=== PATIENT | female | born 1940 | race Caucasian/White ===

== ENCOUNTER 2019-11-11 11:08 | Day surgery (SDC) | payer MEDICARE, OTHER ==
[~2019-11-11] VITALS: Ht 167.6 cm; Wt 98.0 kg
--- NOTE | ~2019-11-11 | PATH ---
[facility] [address] [place] [address] Draft THIS IS AN AMENDED REPORT ORDERING PHYSICIAN: Lewis Gonzáles MD PATIENT NAME: JT LERMA GENDER: F : 1940 SPECIMEN(S): REASON FOR AMENDED REPORT.: This amended report is issued to correct the referring provider delivery location. Originally reported as [facility]; amended to [facility]. The Molecular Pathology remains unchanged. (11/12/19) MOLECULAR PATHOLOGY RESULTS: SARS-CoV-2 Not Detected ADDITIONAL NOTES.: The [facility] Fusion SARS-CoV-2 Assay is a multiplex real-time PCR (RT-PCR) in vitro diagnostic test intended for the qualitative detection of RNA from SARS-CoV-2 from individuals who meet COVID-19 clinical and/or epidemiological criteria. In general, SARS-CoV-2 RNA can be detected during the acute phase of infection. Positive results indicate the presence of SARS-CoV-2 RNA. Clinical correlation with patient history and other diagnostic information is necessary to determine patient infection status. Positive results do not rule out bacterial infection or co-infection with other viruses. Negative results do not preclude SARS-CoV-2 infection and should not be used as the sole basis for patient management decisions. Negative results must be combined with other clinical observations, patient history, and epidemiological information. The [facility] Fusion SARS-CoV-2 Assay is not yet approved or cleared by the [place] FDA. When there are no FDA-approved or cleared tests available, and other criteria are met, FDA can make tests available under an emergency access mechanism called an Emergency Use Authorization (EUA). The EUA for this test is supported by the [place] of Health and Human Service's (HHS's) declaration that circumstances exist to justify the emergency use of in vitro diagnostics for the detection and/or diagnosis of the virus that causes COVID-19. This EUA will PATIENT NAME: JT LERMA PATHOLOGY DATE OF : [birth year] REPORT #: [id number] PHYSICIAN: GIGI PATHOLOGY PCP: SABIHA CALDERON MD REPORT IS CONFIDENTIAL AND NOT TO BE RELEASED WITHOUT AUTHORIZATION [facility] [address] [place] [id number] Draft remain in effect for the duration of the COVID-19 declaration justifying emergency of IVDs, unless it is terminated or revoked by FDA, after which the test may no longer be used. The [facility] Fusion SARS-CoV-2 Assay is for use only under EUA in US laboratories certified under the Clinical Laboratory Improvement Amendments of 1988 (CLIA) to perform high complexity tests. [facility] is certified under CLIA to perform high complexity clinical laboratory testing. PERFORMING LABORATORY.: Molecular testing was performed by [facility] [place] [place] [address] (Airfreight Loading Supervisor: Keon Ibarra D.O.; CLIA#: [id number]) Diagnostician: System Interface Pathologist Electronically Signed 11/12/2019 Copies: ~ PATIENT NAME: JT LERMA PATHOLOGY DATE OF : [birth year] REPORT #: [id number] PHYSICIAN: GIGI PATHOLOGY PCP: SABIHA CALDERON MD REPORT IS CONFIDENTIAL AND NOT TO BE RELEASED WITHOUT AUTHORIZATION
[~2019-11-11 11:08] MED LIST: ASPIRIN EC81 MG; CARDIZEM CD240 MG PO; FISH OIL 1,0001 EAC2 PO; LACTULOSE10 GM/151 PO; LISINOPRIL10 MG PO; LOSARTAN POTASS50 MG; LOSARTAN POTASS50 MG PO; METHOCARBAMOL750 MG PO; NORCO 10-325 T1 EACH PO; SERTRALINE HCL100 MG; SERTRALINE HCL100 MG PO; TYLENOL EXTRA500 MG PO; VITAMIN D250000 UNIT
--- NOTE | 2019-11-11 12:47 | NUR ---
11/11/19 1247 Anna Benito 1245 PATIENT AWAKE BUT DROWSY. REPOSITIONS SELF FROM PRONE POSITION TO BACK WITH 2 PERSON ASST. RESP EVEN AND UNLABORED, NC AT 3 LITERS. PATIENT DENIES PAIN OR NAUSEA.
--- NOTE | 2019-11-15 17:12 | PATH ---
[facility] [address] [facility] [place], [place] [address] Signed SPECIMEN(S): A BONE MARROW - CORE SPECIMEN(S): B BONE MARROW - ASPIRATION SPECIMEN(S): C COMP FLOW, BM EDTA CLINICAL HISTORY: 79-year-old woman with pernicious anemia and remote history of SLL. 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 Peripheral blood - Moderate macrocytic normochromic anemia with mild anisopoikilocytosis. B. Bone marrow, aspirate smear, aspirate clot and core biopsy: - Normocellular marrow (45%) with erythroid hyperplasia and megakaryocytic atypia. - See Diagnostic Comment. DIAGNOSTIC COMMENT: The patient's clinical history of status post Estela-en-Y gastric bypass and reported remote history of SLL is noted. The current bone marrow biopsy shows a normocellular marrow (45%) with erythroid hyperplasia and megakaryocytic atypia. There is no increase in blasts. The morphologic findings are subtle and not diagnostic of a myelodysplastic syndrome, although a low grade myelodysplastic syndrome cannot be completely excluded. Macrocytic anemia can be associated with B12 deficiency in patient's with Estela-en-Y bypass. Additional reactive causes of macrocytic anemia, such as folate deficiency, drug, autoimmune, inflammatory disorders, etc., also need to be ruled out clinically. There is no evidence of B cell neoplasm. Pending cytogenetics and FISH studies will be reported by addendum. LY:slh:C2NR PERIPHERAL BLOOD: HEMOGRAM ([facility], 11/11/2019): WBC 5.1 K/uL, RBC 2.56 M/uL, HGB 9.1 g/dL, HCT 28.4%, MCV 110.5 fL, MCH 36 pg, MCHC 32 g/dL, RDW 20.6%, PLT 219 K/uL. MANUAL DIFFERENTIAL COUNT: Segmented neutrophils 64%, lymphocytes 29%, monocytes 7%, The red blood cells are moderately decreased in number with low hemoglobin and hematocrit, and are macrocytic and hypochromic with moderate anisopoikilocytosis including ovalocytes and teardrops. The PATIENT NAME: JT LERMA PATHOLOGY DATE OF : [birth year] REPORT #: [id number] PHYSICIAN: GIGI PATHOLOGY PCP: SABIHA CALDERON MD REPORT IS CONFIDENTIAL AND NOT TO BE RELEASED WITHOUT AUTHORIZATION [facility] [address] [place], [place] [address] Signed white blood cells are normal in number. Segmented neutrophils are morphologically unremarkable. No circulating blasts are identified. The platelets are normal in number an variable in size; no platelet clumps are identified. BONE MARROW: BONE MARROW ASPIRATE SMEAR: The aspirate smears are hemodilute and paucicellular, without particles. A few erythroid precursors are mildly left-shifted, with maturation, without overt cytologic atypia. A few myeloid precursors appear to be hypogranular. There is no increase in blasts. Megakaryocytes are not identified. BONE MARROW DIFFERENTIAL COUNT (200 cells, may not be senior outside sales representative): Myelocytes 15%, metamyelocytes 10%, bands 17%, segmented neutrophils 16%, lymphocytes 15%, plasma cells 1%, monocytes 3%, eosinophils 1%, basophils 1%, nucleated RBCs 21%. The umsffgz-xd-vcwtasbjl ratio is 3:1. BONE MARROW CORE BIOPSY/ASPIRATE CLOT CELL BLOCK: The core biopsy (three segments, 0.9 cm in greatest dimension) shows trabecular bone with normocellular marrow (45%) for age. The erythroid precursors show maturation. The myeloid precursors show full maturation. There is no increase in blasts. Megakaryocytes are scattered and show a few hypolobated forms. A few scattered small lymphocytes account for less than 5% of cellularity. No lymphoid aggregates are identified. A few scattered plasma cells account for less than 5% of cellularity. No lymphoid aggregates are identified. A few scattered plasma cells account for less than 5% of cellularity. The aspirate clot shows scant cellular marrow with similar morphology. SPECIAL STAINS (with adequate controls): - Iron (aspirate smear): Storage iron absent; ring sideroblasts not identified. - Iron (aspirate clot): Trace storage iron present; ring sideroblasts not identified. - Reticulin (block A1): Grade 0 fibrosis. IMMUNOHISTOCHEMICAL STAINS (performed on block A1 with adequate controls): - CD34: Stains a few blasts (less than 5%). - CD117: Highlights a few mast cells. - Myeloperoxidase: Highlights many maturing granulocytes. - CD71: Highlights relatively increased early/intermediate erythroid precursors. PATIENT NAME: JT LERMA PATHOLOGY DATE OF : [birth year] REPORT #: [id number] PHYSICIAN: GIGI PATHOLOGY PCP: SABIHA CALDERON MD REPORT IS CONFIDENTIAL AND NOT TO BE RELEASED WITHOUT AUTHORIZATION [address] [address] Signed - Factor VIII: Highlights scattered, variably sized megakaryocytes. - CD3: Stains a few scattered and focally clustered small T-cells. - CD5: Stains a few scattered and focally clustered small T-cells. - CD30: Stains very few small B-cells. - PAX5: Stains a few scattered small B-cells. LY:slh FLOW CYTOMETRY: Bone marrow, aspirate: - No increase in blasts. - No clonal B-cell or aberrant T-cell population. - See comment. COMMENT: In summary, there is no increase in blasts and no clonal B-cell or aberrant T-cell population identified in this study. Correlation with morphologic findings is recommended for full evaluation including disorders not fully characterized by flow cytometry such as myelodysplastic syndrome and myeloproliferative neoplasm. FLOW CYTOMETRY ANALYSIS: FLOW DIFFERENTIAL (% Total CD45 vs. SSC gating): Myeloid 85%; Lymphoid 7%; Monocyte 2%; Dim CD45/Blast: 1.1%. Cell Count: 4.2 x 10*3/uL. POPULATION ANALYSIS: BLASTS: Analysis of the dim CD45 gate demonstrates 0.8% myeloblasts by CD34/CD117. LYMPHOID CELLS: The lymphocyte gate comprises 7% of total events and includes 85% T-cells with a CD4:CD8 ratio of 1.4:1 and normal cole T-cell antigen expression. 6% of lymphocytes are polyclonal B-cells with a kappa:lambda ratio of 1.4:1. 8.0% of lymphocytes are NK-cells. MYELOID CELLS: The myeloid population comprises 85% of the total events. No aberrant or immature immunophenotypic expression is detected. MONOCYTES: The monocyte population comprises 2% of the total events. Monocytes are not increased. No aberrant immunophenotypic expression is detected. PLASMA CELLS: 0.2% plasma cells are detected in the screening gate neg-dimCD45/CD38. Plasma cells are CD45 dim and positive for CD19. ANTIBODIES USED: KAPPA, LAMBDA, CD20, CD10, CD19, CD23, CD38, FMC7, CD16, CD56, CD8, CD5, CD2, CD4, CD7, CD3, CD14, CD33, CD13, HLADR, CD34, CD117, CD15, CD45: TOTAL ANTIBODIES USED: 24. JLR FINAL DIAGNOSIS PERFORMED BY: Carolina Bee MD, Pathologist Nov 12 2019 4:44PM PATIENT NAME: JT LERMA PATHOLOGY DATE OF : [birth year] REPORT #: [id number] PHYSICIAN: GIGI MONTILLA PCP: SABIHA CALDERON MD REPORT IS CONFIDENTIAL AND NOT TO BE RELEASED WITHOUT AUTHORIZATION [facility] [address] [place], [place] [address] Signed CYTOGENETICS: Pending, to be reported by addendum. FISH ANALYSIS: Pending, to be reported by addendum. GROSS DESCRIPTION: Two specimens are received in two containers, labeled "Juan Luisnent." A. The specimen, labeled and designated "Tennent, bone marrow core," is received in formalin and consists of two red-jacobs cores of bone up to 1.3 cm in length that are entirely submitted in A1 for decalcification in Immunocal for an hour and a half. B. The specimen, labeled and designated "Tennent, bone marrow," is received in formalin and consists of a 1.5 x 0.8 x 0.3 cm aggregate of red-brown clot material that is entirely submitted in B1. AK (under the direct supervision of a pathologist) The Gross Description was prepared using a voice recognition system. The report was reviewed for accuracy; however, sound-alike word errors, addition and/or deletions may occur. If there is any question about this report, please contact Client Services. ADDITIONAL NOTES: This test was developed and its performance characteristics determined by [facility]. It has not been cleared or approved by the US Food and Drug Administration. The FDA does not require this test to go through premarket FDA review. This test is used for clinical purposes. It should not be regarded as investigational or for research. This laboratory is certified under the Clinical Laboratory Improvement Amendments (CLIA) as qualified to perform high complexity clinical laboratory testing. Immunohistochemical and/or in situ hybridization studies were performed on this case with the appropriate positive controls that react as expected. This test was developed and its performance characteristics determined by [facility]. It has not been cleared or approved by the U.S. Food and Drug Administration. The FDA has determined that such clearance or approval is not necessary. This test is used for clinical purposes. It should not be regarded as investigational or for research. [facility] is certified under the Clinical Laboratory Improvement Amendments of 1988 (CLIA) as qualified to perform high complexity clinical PATIENT NAME: JT LERMA PATHOLOGY DATE OF : [birth year] REPORT #: [id number] PHYSICIAN: GIGI PATHOLOGY PCP: SABIHA CALDERON MD REPORT IS CONFIDENTIAL AND NOT TO BE RELEASED WITHOUT AUTHORIZATION [facility] [address] [facility] [place], [place] [address] Signed laboratory testing. In this case, certain antibodies were performed by both immunohistochemistry and flow cytometry analysis because flow cytometry analysis did not fully explain all the light microscopic findings. Immunohistochemistry aided in the analysis. Both methods are deemed medically necessary in this case. PERFORMING LABORATORY: The technical component was performed by [facility], [address] [place] [id number] (Actuary Clerk: Keon bIarra D.O.; CLIA#: [id number]). [facility], [address] [facility] [place] [address] (Actuary Clerk: Santiago Jain Jr., M.D., [facility]; CLIA#: [id number]). The technical component was performed by [facility], [address] [place] [id number] (Actuary Clerk: Keon Ibarra D.O.; CLIA#: [id number]). Professional interpretation was performed by [facility], [facility], [address] [place] [phone] (Actuary Clerk: Alex Marquis M.D.; CLIA#: [id number]). IMAGES: [id number]: [id number] A: [id number] Diagnostician: Carolina Bee MD Pathologist Electronically Signed 11/15/2019 Copies: ~ PATIENT NAME: JT LERMA PATHOLOGY DATE OF : 44 REPORT #: [id number] PHYSICIAN: GIGI PATHOLOGY PCP: SABIHA CALDERON MD REPORT IS CONFIDENTIAL AND NOT TO BE RELEASED WITHOUT AUTHORIZATION
== END 2019-11-11 13:15 | disposition home or self-care (01) ==
LOC: OPS 11:08 → DS 11:08 → OPS 12:00 → DS 12:00 → OPS 13:15
PROVIDERS: ATTEND Specialist
PROC: 079T3ZX Drainage of Bone Marrow, Percutaneous Approach, Diagnostic (ICD-10-PCS; 2019-11-11)
PROC: 07DR3ZX Extraction of Iliac Bone Marrow, Percutaneous Approach, Diagnostic (ICD-10-PCS; 2019-11-11)
PROC: 07JT3ZZ Inspection of Bone Marrow, Percutaneous Approach (ICD-10-PCS; principal; 2019-11-11 12:00)
DX: D51.0 Vitamin B12 deficiency anemia due to intrinsic factor deficiency (principal); D47.4 Osteomyelofibrosis; I10 Essential (primary) hypertension; I48.91 Unspecified atrial fibrillation; J45.909 Unspecified asthma, uncomplicated; Z85.72 Personal history of non-Hodgkin lymphomas; Z79.899 Other long term (current) drug therapy; Z79.01 Long term (current) use of anticoagulants; Z88.2 Allergy status to sulfonamides
CPT/HCPCS: 80053; 82607; 82746; 83090; 83615; 83921; 85025; 85045; 99153; G0500; J2250; J3010; J7121

== ENCOUNTER 2020-10-05 08:45 | Day surgery (SDC) | payer MEDICARE, OTHER ==
[~2020-10-05] VITALS: Ht 167.6 cm; Wt 90.0 kg
[~2020-10-05 08:45] MED LIST changes: +METOPROLOL SUCC25 MG PO; -VITAMIN D250000 UNIT; +VITAMIN D3125 MC1 PO
--- NOTE | 2020-10-05 10:15 | NUR ---
PATIENT BACK TO ROOM FROM PACU. REPORT RECEIVIED FROM ZI RAMSEY. PATIENT RATES PAIN 09/26. DENIES NAUEA. VSS. AT BEDSIDE. DRESSING CLEAN, DRY, AND INTACE. PATIENT UP TO BATHROOM WITH 2 RN ASSIST. PATIENT GAIT UNSTEADY AND TOLERATED WELL. PROVIDED PATIENT WITH WATER, APPLESAUCE, AND CRAKCKERS. PAIN MEDICATION GIVEN PER APR. CALL LIGHT WITHIN REACH.
--- NOTE | 2020-10-05 12:17 | NUR ---
10/05/20 1217 Anna Benito 1214 PATIENT ARRIVES TO PACU SLEEPING. RESP EVEN AND UNLABORED, MASK AT 6 LITERS, SATS 100%.
[2020-10-05] MEDS ORDERED: IBUPROFEN600 MG PO (12:33)
[2020-10-05] MEDS ORDERED: OXYCODON-ACETA1 EAC2 PO (12:33)
[2020-10-05] MEDS ORDERED: ACETAMINOPHEN500 MG PO (12:33)
--- NOTE | 2020-10-05 12:52 | NUR ---
1246: PATIENT BACK IN DAY SURGERY UNIT FROM PACU. DROWSY. DENIES PAIN. DENIES NAUSEA. IV SITE WNL. RIGHT BREAST DRESSING X 2 CLEAN, DRY, AND INTACT. SCDs ON. TAKING SIPS OF WATER. DECLINED SOMETHING TO EAT AT THIS TIME. AT BEDSIDE. CALL LIGHT WITHIN REACH. PATIENT RESTING.
--- NOTE | 2020-10-05 13:21 | NUR ---
1315: CHECKED PATIENT. RESTING. NO NEEDS AT THIS TIME. AT BEDSIDE. CALL LIGHT WITHIN REACH.
--- NOTE | 2020-10-05 13:54 | NUR ---
PATIENT AWAKENED FOR VS CHECK. RATES PAIN IN RIGHT BREAST 02/26. RIGHT BREAST DRESSINGS X 2 CLEAN, DRY AND INTACT. TOLERATING WATER. OFFERED PATIENT SOMETHING TO EAT. PATIENT DECLINED AT THIS TIME. SCDs ON. AT BEDSIDE. CALL LIGHT WITHIN REACH.
--- NOTE | 2020-10-05 15:29 | NUR ---
1415: PATIENT ASSISTED OOB AND TO BATHROOM BY OTHER RN. GAIT STEADY. VOID WITHOUT DIFFICULTY. GAIT STEADY BACK TO ROOM. PATIENT GIVEN APPLESAUCE TO EAT. AT BEDSIDE. CALL LIGHT WITHIN REACH. 1445: PATIENT TOLERATED APPLESAUCE. PATIENT MEDICATED FOR RIGHT BREAST PAIN WITH 1 TABLET OF PERCOCET. DISCHARGE INSTRUCTIONS GIVEN TO PATIENT AND . IV DC'D WNL. PATIENT ASSISTED TO GET DRESSED. 1508: PATIENT DISCHARGED TO HOME WITH VIA WHEELCHAIR.
--- NOTE | 2020-10-11 13:17 | OR ---
[facility] [address] [place], [place] [address] Signed DATE OF OPERATION: 10/05/2020 SURGEON: Rajesh Thacker MD PREOPERATIVE DIAGNOSES: 1. Diagnosed right lateral breast infiltrating ductal carcinoma. 2. Remaining breast masses, right inferolateral and right medial breast. POSTOPERATIVE DIAGNOSES: 1. Diagnosed right lateral breast infiltrating ductal carcinoma. 2. Remaining breast masses, right inferolateral and right medial breast. PROCEDURES: 1. Right inferolateral open breast biopsy. 2. Right medial breast biopsy x1. ANESTHESIA: General LMA, Rajesh Park CRNA and local 10 mL of 0.25% Marcaine with epinephrine. INDICATION: This 80-year-old white woman is a patient of Dr. Sabiha Tom. She was identified as having abnormality on mammogram which included three separate lesions. A dominant lesion was noted in the right lateral breast, which was biopsied by ultrasound core biopsy by me confirming infiltrating ductal carcinoma. Two additional smaller lesions are noted, one in the inferolateral right breast and likely one in the medial breast. These are now more palpable than previously determined. Definitive breast cancer related to the right lateral breast mass now identified and confirmed as cancer would be modified depending on the findings of the other two nodules. Since the other nodules are in separate quadrants of the breast, if they prove to be cancer then treatment would more likely appropriately be performed with mastectomy if they are benign and options remain including lumpectomy, radiation therapy, and so on. On that basis, the two palpable abnormalities are now to undergo open excisional biopsy. The risk of bleeding, infection, and so forth were reviewed with her, she understands and wished to proceed. FINDINGS: The lesion in the inferolateral right breast was more suspicious for malignancy than the medial area. The medial area was thickened, but did not have distinct mass that I could tell. Both were excised completely and final pathology is pending. Electronically Signed By: RAJESH THACKER MD 10/11/20 1317 PATIENT NAME: JT LERMA OPERATIVE REPORT DATE OF : 44 REPORT #: [id number] PHYSICIAN: RAJESH THACKER MD PCP: SABIHA TOM MD REPORT IS CONFIDENTIAL AND NOT TO BE RELEASED WITHOUT AUTHORIZATION [facility] [address] [place], [place] [address] Signed DESCRIPTION OF PROCEDURE: The patient was evaluated in the preoperative area and the area in question the inferolateral right breast marked and the thickened area in the medial breast also marked. She was taken to the operation, given a general anesthetic. Preoperative antibiotic Ancef was given and sequential compression device stockings used and heparin subcutaneously administered. After sterile preparation of the breast areas in question, the inferolateral right breast was identified, stabilized and a transverse incision made using electrocautery dissection, wide resection of the lesion was undertaken. The wound was closed with interrupted 2-0 Vicryl and a subcuticular 3-0 Vicryl. The medial breast area which was thickened and without a distinct mass or at least as distinct as the other was similarly excised and similarly closed. Steri-Strips were applied to both biopsy sites as was an Acticoat silver sponge dressing. The patient was allowed to emerge from anesthesia, taken to recovery room in good condition having suffered no complication. Blood loss was minimal. A 10 mL of 0.25% Marcaine with epinephrine was injected for postoperative analgesic effect. MD ABNER Walls/MODL /[id number] cc: MD Lewis Patrick, MD Sabiha Tom MD Copies: CARMENCITA ALLEN MD,SABIHA GRAMAJO MD, MD ~ Electronically Signed By: RAJESH THACKER MD 10/11/20 1317 PATIENT NAME: JT LERMA OPERATIVE REPORT DATE OF : 44 REPORT #: [id number] PHYSICIAN: RAJESH THACKER MD PCP: SABIHA TOM MD REPORT IS CONFIDENTIAL AND NOT TO BE RELEASED WITHOUT AUTHORIZATION
[2020-10-16] MEDS ORDERED: ALLOPURINOL100 MG PO (14:39)
[2020-10-16] MEDS ORDERED: HYDROCHLOROTHIA25 MG PO (14:40)
[2020-10-16] MEDS ORDERED: FOLIC ACID1 MG PO (14:40)
[2020-10-16] MEDS ORDERED: CALCITRIOL0.25 MCG PO (14:40)
[2020-10-16] MEDS ORDERED: OXYBUTYNIN CHLOR5 MG PO (14:41)
[2020-10-16] MEDS ORDERED: JANTOVEN5 MG PO (14:41)
--- NOTE | 2020-10-16 17:08 | PATH ---
[facility] [address] [facility] [place], [place] [address] Signed SPECIMEN(S): A RIGHT BREAST LOWER OUTER QUADRANT MASS SPECIMEN(S): B MEDIAL RIGHT BREAST TISSUE SPECIMEN SOURCE: A. RIGHT BREAST LOWER OUTER QUADRANT MASS B. MEDIAL RIGHT BREAST TISSUE CLINICAL HISTORY: Right breast ca. FINAL PATHOLOGIC DIAGNOSIS: A. Breast, right, lower outer quadrant mass, excisional biopsy: - Invasive ductal carcinoma, with the following features: - Histologic type: Invasive carcinoma of no special type (ductal). - Histologic grade ([place] histologic score): - Glandular (acinar)/tubular differentiation: Score 3. - Nuclear pleomorphism: Score 3. - Mitotic rate: Score 3. - Overall grade: 3 of 3 (total score 9 of 9). - Tumor size: 15 x 14 x 8 mm. - Tumor focality: Single focus of invasive carcinoma. 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 - Nuclear Grade: Grade 3 (High). - Architectural Patterns: Solid, papillary. - Necrosis: Present, single cell necrosis. - Microcalcifications: Not identified. - Lymphovascular invasion: Present. - Margins: - Involved by invasive carcinoma, see Comment. - DCIS: 2.5 mm from unoriented margin. - Regional lymph nodes: Not applicable: No regional lymph nodes submitted or found. - Breast biomarker testing: Pending, to be reported by an addendum. - Pathologic stage classification (pTNM, AJCC 8th edition): pT1c pN not assigned (no nodes submitted or found). - See Comment. B. Breast, right, medial, excisional biopsy: - Atypical ductal hyperplasia, minute foci. - Microcalcifications associated with non-neoplastic breast tissue. PATIENT NAME: JT LERMA PATHOLOGY DATE OF : 44 REPORT #: [id number] PHYSICIAN: DEBBIEPollitoIngles PATHOLOGY PCP: SABIHA CALDERON MD REPORT IS CONFIDENTIAL AND NOT TO BE RELEASED WITHOUT AUTHORIZATION [facility] [address] [place], [place] [address] Signed - No evidence of malignancy. COMMENT: Regarding specimen A: It is noted the patient has an additional focus of invasive carcinoma in the right lateral breast (previously biopsied, see [id number]). The carcinoma in the right lower outer quadrant (specimen A) was pathologically staged in this excisional biopsy, however the staging may be updated following complete excision of the previously biopsied carcinoma in the right lateral breast. The specimen was received unoriented, therefore the location of the positive margin cannot be determined. As part of [facility] Quality Improvement Program, this case was reviewed by another member of our pathology staff. NAL:cml:C1NR MICROSCOPIC EXAMINATION: Histologic sections of all submitted blocks are examined by light microscopy. These findings, together with the gross examination, support the pathologic diagnosis. SMMHC and p63 immunohistochemical stains (with appropriately staining controls) on two financial services representative sections of part A confirm the present of DCIS, highlighting the retained myoepithelial cells surrounding the ducts with neoplastic epithelium. GROSS DESCRIPTION: Two specimens are received in two containers, labeled "KT." A. The specimen, labeled "KT, A," and designated on the requisition "right lower outer quadrant mass," is received in formalin and consists of an unoriented portion of yellow-chan, fatty tissue (9 g, 4.5 x 3.1 x 1.9 cm). The specimen is inked blue and serially sectioned into twelve slices to reveal a white-chan, firm, ill-defined mass (1.5 x 1.4 x 0.8 cm) in slices 3-7 that abuts the inked margin. The remaining cut surface shows yellow-chan fatty tissue. The slices with mass are submitted entirely as follows: (A1) slice three (A2) slice four (A3-A4) slice five, bisected (A5-A6) slice six, bisected (A7) slice seven (A8) slice nine The specimen was fixed in formalin for approximately 26 hours. PATIENT NAME: JT LERMA PATHOLOGY DATE OF : 44 REPORT #: [id number] PHYSICIAN: GIGI MONTILLA PCP: SABIHA CALDERON MD REPORT IS CONFIDENTIAL AND NOT TO BE RELEASED WITHOUT AUTHORIZATION [facility] [address] [place] [id number] Signed B. The specimen, labeled "KT, B," is received in formalin and consists of an unoriented portion of yellow-chan fatty tissue (18 g, 4.9 x 4.4 x 2.1 cm). The specimen is inked blue and serially sectioned into 10 slices to reveal yellow fibrofatty and chan-white fibroglandular tissue without a discrete mass/lesion. Fibroglandular tissue comprises approximately less than 5% of the parenchyma. The specimen is submitted entirely as follows: B1 one end perpendicularly sectioned (slice one) B2-B3 slice 2 bisected B4-B5 slice 3 bisected B6-B7 slice 4 bisected B8-B9 slice 5 bisected B10-B11 slice 6 bisected B12-B13 slice 7 bisected B14-B15 slice 8 bisected B16-B18 slice 9 trisected B19 one end perpendicularly sectioned (slice 10) Cold ischemic time: Grossly indeterminate due to lack of information Formalin fixation time: greater than 72 hours. AC/AI (under the direct supervision of a pathologist) The Gross Description was prepared using a voice recognition system. The report was reviewed for accuracy; however, sound-alike word errors, addition and/or deletions may occur. If there is any question about this report, please contact Client Services. ADDITIONAL NOTES: Immunohistochemical and/or in situ hybridization studies were performed on this case with the appropriate positive controls that react as expected. This test was developed and its performance characteristics determined by [facility]. It has not been cleared or approved by the U.S. Food and Drug Administration. The FDA has determined that such clearance or approval is not necessary. This test is used for clinical purposes. It should not be regarded as investigational or for research. [facility] is certified under the Clinical Laboratory Improvement Amendments of 1988 (CLIA) as qualified to perform high complexity clinical laboratory testing. This assay has not been validated for specimens that have been decalcified. PERFORMING LABORATORY: PATIENT NAME: JT LERMA PATHOLOGY DATE OF : 44 REPORT #: [id number] PHYSICIAN: GIGI PATHOLOGY PCP: SABIHA CALDERON MD REPORT IS CONFIDENTIAL AND NOT TO BE RELEASED WITHOUT AUTHORIZATION [place] [id number] [place], [place] [address] Signed The technical component was performed by [facility], [address] [place] [id number] (Database Software Technician: Josefina Santiago MD; CLIA# [id number]). Professional interpretation was performed by [facility], [address] [address] (CLIA# [id number]). The technical and professional components were performed by [facility], [address] [place] [address] (Database Software Technician: Keon Ibarra D.O.; CLIA#: [id number]). REASON FOR ADDENDUM: To add results of additional testing. ADDENDUM PATHOLOGIC DIAGNOSIS: A. HER-2 protein by IHC, right breast lower outer quadrant mass: - Equivocal; IHC score 2+. ADDENDUM COMMENT: In view of the equivocal IHC result, reflex testing for HER-2 amplification by FISH has been ordered and will be reported by addendum. TTP:[facility] ADDENDUM MICROSCOPIC EXAMINATION: Block: A3. The fixation is 10% buffered formalin. The length of fixation is greater than 72 hours, outside of ASCO/CAP guidelines. HER-2 protein expression by immunohistochemistry using the FDA-approved HER-2 Pathway [place] at the request of Dr. Melonie Serna. Standardized batch control materials react appropriately. The presence of tumor is confirmed. Scoring is according to ASCO/CAP 2018 guidelines. Weak to moderate complete membrane staining observed in greater than 10% of tumor cells; score 2+. PERFORMING LABORATORY: The technical and professional components were performed by [facility], [address] [place] [address] (Database Software Technician: Keon Ibarra D.O.; CLIA#: [id number]). A: HER2_001 A: HER2_002 REASON FOR ADDENDUM: To add results of additional testing. ADDENDUM PATHOLOGIC DIAGNOSIS: PATIENT NAME: JT LERMA PATHOLOGY DATE OF : 44 REPORT #: [id number] PHYSICIAN: GIGI PATHOLOGY PCP: SABIHA CALDERON MD REPORT IS CONFIDENTIAL AND NOT TO BE RELEASED WITHOUT AUTHORIZATION [facility] [address] [place], [place] [address] Signed A. HER-2 gene by FISH, right breast lower outer quadrant mass: - Negative for amplification. AIC:[facility] ADDENDUM MICROSCOPIC EXAMINATION: Specimen type: Core biopsy. Block: A3. Cold ischemia time: Unknown. The fixation is 10% buffered formalin. The length of fixation is 26 hours, meeting ASCO/CAP guidelines. Scoring method: Manual. Fluorescence in situ hybridization (FISH) study (multiplex probe) for HER-2 gene amplification using the [employer] HER2 IQFISH pharmDx kit was performed at [facility], [place], [place]. The assay has not been validated for decalcified specimens. Controls were processed in the same batch as the patient and reacted appropriately. The patient's sample was considered adequate for interpretation. - Number of nuclei counted: 40 - Number of HER-2 signals counted: 101 - Number of CEP 17 signals counted: 93 - Average number of HER-2 signals per cell: 2.5 - Average number of CEP 17 signals per cell: 2.3 - HER-2:CEP 17 ratio: 1.1 Negative for HER-2 amplification (ratio less than 2.0 or average HER-2 signals per cell less than 4.0). COMMENT: No internal controls are present, but external controls are appropriately positive. If needed, testing another specimen that contains internal controls may be warranted for confirmation of ER status. NAL:cml ADDITIONAL NOTES: Immunohistochemical and/or in situ hybridization studies were performed on this case with the appropriate positive controls that react as expected. This test was developed and its performance characteristics determined by [facility]. It has not been cleared or approved by the U.S. Food and Drug Administration. The FDA has determined that such clearance or approval is not necessary. This test is used for clinical purposes. It should not be regarded as investigational or for research. [facility] is certified under the PATIENT NAME: JT LERMA PATHOLOGY DATE OF : 44 REPORT #: [id number] PHYSICIAN: GIGI PATHOLOGY PCP: SABIHA CALDERON MD REPORT IS CONFIDENTIAL AND NOT TO BE RELEASED WITHOUT AUTHORIZATION [facility] [address] [place], [place] [address] Signed Clinical Laboratory Improvement Amendments of 1988 (CLIA) as qualified to perform high complexity clinical laboratory testing. This assay has not been validated for specimens that have been decalcified. REASON FOR ADDENDUM: To add results of additional testing. ADDENDUM PATHOLOGIC DIAGNOSIS: A. ER, IN, and Ki-67, Right breast lower outer quadrant mass: Estrogen receptor: Positive. - Greater than 90% of tumor cells with moderate average intensity. Progesterone receptor: Positive. - Greater than 90%% of tumor cells with moderate average intensity. Ki-67 proliferation index: 30%. ADDENDUM MICROSCOPIC EXAMINATION: Block: A3. The cold ischemia time is unknown. The fixative is 10% NBF. The length of fixation is 26 hours, meeting ASCO/CAP guidelines. Estrogen receptor clone SP1 and progesterone receptor clone 1E2 by [employer] [place], [place]. Detection: HRP Polymer Detection on the [place] [employer] with appropriate controls. Nuclear immunoreactivity of 1% or greater is considered positive by ASCO/CAP 2020 guidelines. Internal control cells for ER are absent. Internal control cells for IN are absent. A Ki-67 proliferation index is performed, and 500 cells are counted. NAL:cml The technical component was performed by [facility], [address] [place] [address] (Database Software Technician: Josefina Santiago MD; CLIA# [id number]). Professional interpretation [facility], [address] [place] [address] (CLIA# [id number]). Diagnostician: Laura Santillan MD Pathologist Diagnostician: Awilda Rhoades MD Pathologist Diagnostician: Melonie Serna MD Pathologist Electronically Signed 10/16/2020 PATIENT NAME: JT LERMA PATHOLOGY DATE OF : 44 REPORT #: [id number] PHYSICIAN: GIGI PATHOLOGY PCP: SABIHA CALDERON MD REPORT IS CONFIDENTIAL AND NOT TO BE RELEASED WITHOUT AUTHORIZATION [address] [place] [address] Signed Copies: ~ PATIENT NAME: JT LERMA PATHOLOGY DATE OF : 44 REPORT #: [id number] PHYSICIAN: GIGI PATHOLOGY PCP: SABIHA CALDERON MD REPORT IS CONFIDENTIAL AND NOT TO BE RELEASED WITHOUT AUTHORIZATION
== END 2020-10-05 15:08 | disposition home or self-care (01) ==
LOC: DS 08:45
PROVIDERS: ATTEND Surgery
PROC: 0HBT0ZX Excision of Right Breast, Open Approach, Diagnostic (ICD-10-PCS; principal; 2020-10-05 10:00)
DX: C50.511 Malignant neoplasm of lower-outer quadrant of right female breast (principal); I12.0 Hypertensive chronic kidney disease with stage 5 chronic kidney disease or end stage renal disease; N18.6 End stage renal disease; Z85.828 Personal history of other malignant neoplasm of skin; Z88.2 Allergy status to sulfonamides; Z88.6 Allergy status to analgesic agent
CPT/HCPCS: 00404; 88307; 88341; 88342; 88360; 88377; J0690; J1100; J1160; J1644; J1885; J2405; J2704; J2765; J3010; J7121

== ENCOUNTER 2020-10-17 07:29 | Observation (INO) | payer MEDICARE, OTHER ==
[~2020-10-17] VITALS: Ht 167.6 cm; Wt 89.0 kg
[~2020-10-17 07:29] MED LIST changes: +ACETAMINOPHEN500 MG PO; +ALLOPURINOL100 MG PO; +CALCITRIOL0.25 MCG PO; +FOLIC ACID1 MG PO; +HYDROCHLOROTHIA25 MG PO; +IBUPROFEN600 MG PO; +JANTOVEN5 MG PO; +OXYBUTYNIN CHLOR5 MG PO; +OXYCODON-ACETA1 EAC2 PO
--- NOTE | 2020-10-17 12:33 | NUR ---
10/17/20 1233 [address],[place] 1213 PT ARRIVED TO PACU ON 6L VIA MASK, O2 SAT DECREASED TO JAW THRUST USED AND O2 INCREASED TO 10L. PT NONAROUSABLE TO PAINFUL STIMULI. 1215 O2 INCRESING, JAW THRUST NO LONGER NEEDED TO MAINTAIN AIRWAY. 1225 PT STARTS TO OPEN HER EYES AND RN REORIENTED PT TO PACU. PT NODS "NO" TO PAIN AND NAUSEA. WARM BLACKETS PLACED. 1229 O2 REMOVED, RN ENCOURAGES PT TO DEEP BREATHE. PT MOVING ARMS IN BED AND REMAINS VERY DROWSY WITH EYES OPEN. VSS.
--- NOTE | 2020-10-17 13:20 | NUR ---
Pt arrives from PACU via stretcher to MS unit, admission hx and assessment complete. VSS, pt A+O, rating pain at 3/10 at this time. Dressing visualized, small amount sanguinous drainage noted, 2 NARENDRA drains WNL to R chest. Lung sounds clear, HRR, bowel tones active. CMS intact. IVF infusing WNL. Reviewed plan of care with pt who is agreeable. Ice chips and water provided. SCDs in place. Pt ambulates to [facility] with 2PA to void. Tolerates well, slightly unsteady gait, states recurrent falls at home prior to admission. PT/OT consulted. Oriented to room and call light system. Pt has no further needs, will continue to monitor.
--- NOTE | 2020-10-17 14:30 | NUR ---
Post op vitals done, scheduled medications administered along with PRN tylenol and toradol for 7/10 pain. Pt denies any further interventions at this time. Tolerating ice chips and water. at bedside, attentive to patient. No other needs at this time. Call light in reach.
--- NOTE | 2020-10-17 15:42 | NUR ---
Post op vitals taken, stable. Pt ambulates to BSC with 1PA to void. NARENDRA drains emptied, 80ml sanguinous drainage noted. Dressing to R chest C/D/I. Pt states pain has improved, rating 2/10 at this time. No further needs, call light in reach.
[2020-10-17] MEDS ORDERED: METOPROLOL TART25 MG PO (18:09)
[2020-10-17] MEDS ORDERED: BRIMONIDINE TART5 ML OU (18:11)
[2020-10-17] MEDS ORDERED: TIMOLOL MALEATE5 M2 OU (18:12)
[2020-10-17] MEDS ORDERED: CYANOCOBAL1000 MCG/M IM (18:13)
[2020-10-17] MEDS ORDERED: SF 5000 PLUS51 GM DT (18:16)
--- NOTE | 2020-10-17 18:30 | NUR ---
Pt ambulates to BSC with 1PA, This RN visualized dressing and noted large amount sanguinous drainage on gauze around drain sites, leaking fluid from under dressings down pt's stomach. NARENDRA drains emptied, MD notified who requests dressing be removed, gauze with pressure weight placed. This RN and charge lpn completed this. Pt VSS, a+o, reporting no pain or needs. MD to come assess patient.
--- NOTE | 2020-10-17 19:45 | NUR ---
REPORT RECEIVED FROM DAY SHIFT RN. PT LYING IN BED ALERT AND ORIENTED. DR. THACKER IN TO SEE PT. NARENDRA TO LIWS REQUESTED BY DR. THACKER DUE TO BULB NOT MAINTAINING SUCTION. PT DENIES PAIN AT THIS TIME. IVF INFUSING. NO FURTHER NEEDS. CALL LIGHT IN REACH. WHITE BOARD UPDATED.
--- NOTE | 2020-10-17 20:15 | NUR ---
PT CALLED TO USE THE BSC. SBA. CHANGED GOWN AND PAD ON BED D/T SMALL AMOUNTS OF DRIED BLOOD, BACK TO BED, PILLOW SUPPORT RIGHT SIDE, 2# WEIGHT LAYING AGAINST RIGHT SIDE, NARENDRA TO LIWS, WITH OTHER NARENDRA TO SUCTION. IV INFUSING PER ORDER. PT SWEETIE IN ROOM. NO OTHER NEEDS AT THIS TIEM.
--- NOTE | 2020-10-17 21:55 | NUR ---
EVENING ASSESSMENT COMPLETE. SCHEDULED MEDS ADMINISTERED PER EMAR. PRN FOR PAIN ADMINISTERED FOR RIGHT SIDE INCISION PAIN. IV ABX INFUSING ORDERED. DRESSING TO RIGHT CHEST INCISION INTACT WITH SMALL AMOUNT SEROSANG DRAINAGE. NARENDRA SITES X 2 COVERED WITH GAUZE. SMALL AMOUNT SEROSANG DRAINAGE NOTED. NARENDRA BULB X 1 TO LIWS WITH 100 ML SEROSANG DRAINAGE. WEIGHT TO NARENDRA SITES REMAINS IN PLACE. IVF INFUSING. SCD'S IN PLACE. EVENING SNACK AND FRESH WATER PROVIDED. PT DENIES QUESTIONS OR CONCERNS. CALL LIGHT IN REACH.
--- NOTE | 2020-10-18 00:15 | NUR ---
PT RESTING IN BED WITH EYES CLOSED. RESPIRATIONS EVEN. CALL LIGHT IN REACH.
--- NOTE | 2020-10-18 01:30 | NUR ---
2PA HELPED PATIENT TO BEDSIDE COMMODE.
--- NOTE | 2020-10-18 01:56 | NUR ---
CALL LIGHT ANSWERED. PT UP TO BSC WITH SBA TO VOID. PT ABLE TO DO OWN PRADEEP CARE. BACK TO BED, JUAN WELL. DENIES PAIN OR NAUSEA. VS AND I&O COMPLETE. GAUZE AROUND NARENDRA SITES CHANGED DUE TO RED DRAINAGE. DRESSING TO RIGHT CHEST WALL WITH MODERATE AMOUNT SHADOWING. NARENDRA #[address] IVF INFUSING WNL. PT DENIES FURTHER NEEDS. CALL LIGHT IN REACH.
--- NOTE | 2020-10-18 06:35 | NUR ---
VS AND I&O COMPLETE. PT UP TO BSC TO VOID WITH SBA. BACK TO BED, JUAN WELL. NARENDRA #1 TAKEN OFF WALL SUCTION AT THIS TIME. APPEARS TO BE HOLDING BULB SUCTION. DRESSING TO NARENDRA SITE CDI. PT TEACHING PROVIDED REGARDING DRAIN CARE. PRN FOR PAIN ADMINISTERED PER EMAR FOR "SORENESS" ON THE RIGHT CHEST SURGICAL SITE. SCD'S IN PLACE. IVF INFUSING WNL. NO FURTHER NEEDS. CALL LIGHT IN REACH.
--- NOTE | 2020-10-18 07:15 | NUR ---
Report received from Lashawn RAMSEY. Pt resting in bed with eyes closed, respirations even and unlabored. No needs identified at this time, will continue plan of care.
--- NOTE | 2020-10-18 08:00 | NUR ---
Pt up to chair with 1PA for breakfast. Linens and gown changed, PARAMJIT Shields in room to assist. Pt educated regarding joao drains once more, emptying, managing dressings, etc. She verbalizes understanding. Dressings noted to have small amount sanguinous drainage, does not require changing of gauze at this time. Pt states no further needs currently. Call light in reach.
--- NOTE | 2020-10-18 08:25 | NUR ---
PT AWAKE IN ROOM. PT MOVED TO CHAIR SBA WITH ROXY WHITE IN THE ROOM. THIS CARPENTER MOLD AND ROXY WHITE CHANGED LINEN. WHITE BOARD UPDATED. PT AWAKE IN CHAIR EATING BREAKFAST AND IN GOOD SPIRITS. CALL LIGHT WITHIN REACH. NO FURTHER NEEDS AT THIS TIME.
--- NOTE | 2020-10-18 08:47 | NUR ---
MED REC COMPLETE
--- NOTE | 2020-10-18 10:30 | NUR ---
It was my pleasure to visit with Loretta this morning. Upon entering the room, Shelley is in bed, awake, alert, and oriented, and is answering questions appropriately. I did also not that she has IV fluids infusing, and her IV is intact with no signs or symptoms of redness, swelling, or compomise to the insertion site. Loretta reports that she is happy with the care that she has received while here in the hospital, and she feels like the nurses have been responsive to her care needs. She reports that she would sleep last night, and that her sleep was not disrupted by noise from oustide her room. She reports that she udnerstands her medications and her treatment plan, and she also verbalized that the nurses have done a "good job" with managing her pain post-operatively. She expresses no concerns to me at this time, and she denies questions at this time.
--- NOTE | 2020-10-18 13:17 | NUR ---
Visited with PT. She asked for prayer for acceptence of her body from the results of her surgery. She was going home today. I prayed for PT.
[2020-10-18] MEDS ORDERED: ACETAMINOPHEN500 MG PO (13:48)
--- NOTE | 2020-10-18 14:01 | NUR ---
Discharge order received, IV removed WNL, JEWELRY CASTING MODEL MAKER APPRENTICE in room to take vitals. Pt ambulates to BSC to void, assisted to get dressed, tolerated well.
--- NOTE | 2020-10-18 14:02 | NUR ---
PT INDEPENDENT IN ROOM. PT READY TO DC AND IN THE ROOM. CALL LIGHT WITHIN REACH. NO FURTHER NEEDS.
--- NOTE | 2020-10-18 14:17 | NUR ---
Discharge instructions provided, pt has no questions. Instructed with care regarding NARENDRA drains, logging output, managing dressings, showering, activity, etc, pt verbalizes understanding and agrees to call with any questions once home. at bedside and also verbalizes understanding. VSS, A+O, no needs identified at this time, pharmacist in room to talk with patient.
--- NOTE | 2020-10-20 20:15 | OR ---
[facility] [address], [place] [address] Signed DATE OF OPERATION: 10/17/2020 SURGEON: Rajesh Thacker MD PREOPERATIVE DIAGNOSIS: Right multicentric infiltrating ductal breast carcinoma. POSTOPERATIVE DIAGNOSES: 1. Right multicentric infiltrating ductal breast carcinoma. 2. Positive sentinel lymph node on frozen pathology. PROCEDURES: 1. Methylene blue injection for sentinel lymph node identification. 2. Right modified radical mastectomy (level 3 axillary resection). ANESTHESIA: General endotracheal, Italia Dexter CRNA and Chito Yeboah CRNA. INDICATIONS: This 80-year-old white woman is a patient of Dr. Sabiha Tom. She was identified as having three lesions of the right breast that were suspicious for malignancy. A palpable lesion in the lateral breast was noted and underwent core biopsy by me confirming infiltrating ductal carcinoma. Subsequent smaller but suspicious lesions in the inferior lateral aspect and in the medial aspect were excised under anesthesia in the operating room by me confirming infiltrating ductal carcinoma in the right lower lateral quadrant and and focal DCIS. Given the multicentricity of her breast cancer issue, I have recommended a total mastectomy, possible axillary dissection. She is found in the apex of the axilla on preoperative evaluation to have a suspicious palpable lymph node. Chest x-ray performed shows no evidence of metastatic disease in that regard. She is today to undergo a right total mastectomy with sentinel lymph node injection and biopsy and axillary lymph node resection and possible axillary dissection depending on findings. Having reviewed all of the issues with the patient and her , completion of axillary dissection would be undertaken if metastatic disease is noted in the axilla. The risks of bleeding, infection, arm edema, and other unforeseen complications was reviewed in detail with them and understand and wished to proceed. FINDINGS: Injection of methylene blue dye was undertaken in a conventional way, but there was essentially no uptake to axillary lymph nodes. She was found to have suspicious Electronically Signed By: RAJESH THACKER MD 10/20/202014 PATIENT NAME: JT LERMA OPERATIVE REPORT DATE OF : 44 REPORT #: [id number] PHYSICIAN: RAJESH THACKER MD PCP: SABIHA TOM MD REPORT IS CONFIDENTIAL AND NOT TO BE RELEASED WITHOUT AUTHORIZATION [facility] [address], [place] [address] Signed axillary lymph nodes clinically and a manufacturers representative large lymph node was sent for frozen pathology confirming metastatic disease. On that basis, completion level 3 axillary dissection was undertaken concurrently with the mastectomy. There were no complications. Several axillary lymph nodes were highly suspicious for metastatic disease based on clinical appearance and texture. DESCRIPTION OF PROCEDURE: The patient was brought to the operating room and given a general endotracheal anesthetic, preoperative antibiotic Ancef was given. Sequential compression device stockings were used and heparin subcutaneously administered. The right breast and upper arm were prepared with a Betadine solution and draped sterilely. Palpation in the superior aspect of the axilla detected a suspicious lymph node. The areas of prior biopsy were well healed. The breast was elevated and marking undertaken to accomplish an appropriate length of skin flap. Notably, the breast was very redundant and floppy overall. Elliptical incision was made incorporating the nipple-areolar complex under the guidance of the marking. Superior and inferior flaps were developed with blunt and electrocautery dissection. As mentioned previously, there was the injection of 2.5 mL of methylene blue dye in the subepidermal space in the right periareolar margin for sentinel lymph node identification. Technically speaking given the palpable axillary lymph node dissection even without sentinel lymph node, biopsy was justifiable given the clinically suspicious multiple lymph nodes noted at this time. Once superior and inferior flaps were developed, the breast was excised from the chest wall in a superior to inferior direction and in a medial to lateral direction. Dissection was taken down to the axillary contents. The clavipectoral fascia was incised and I saw no evidence of methylene blue uptake initially. A suspicious palpable lymph node was dissected free and was found to be quite suspicious, firm and quite hard and was sent for frozen pathology. Dissection was undertaken on the high probability that axillary dissection would be appropriate. The axillary vein was identified and using sharp and blunt dissection, the axillary contents inferior to it were dissected free. The long thoracic and thoracodorsal neurovascular bundles were identified as well. By this point, the frozen pathology returned confirming metastatic disease to the lymph node sent for frozen pathology. Axillary dissection proceeded as anticipated, applying clips to small blood vessels as needed and excising apical lymph nodes, which were clinically suspicious high in the axilla. The axillary contents were ultimately excised in continuity with the axillary tail of Cesar and passed for permanent pathology. Irrigation was undertaken with sterile water allowing for security of small vessel bleeding with electrocautery. The long thoracic and thoracodorsal Electronically Signed By: RAJESH THACKER MD 10/20/202014 PATIENT NAME: JT LERMA OPERATIVE REPORT DATE OF : 44 REPORT #: [id number] PHYSICIAN: RAJESH THACKER MD PCP: SABIHA TOM MD REPORT IS CONFIDENTIAL AND NOT TO BE RELEASED WITHOUT AUTHORIZATION [address] [address] Signed neurovascular bundles were identified as unharmed and functional. Beneath the flaps, irrigation was undertaken with sterile water as well. Hemostasis was considered good overall. Two separate stab incisions were made and passage of 10 mm flat Dilip drains was undertaken beneath the flaps and into the depths of the axilla. They were secured to the skin with nylon suture. The wound was closed with interrupted 2-0 Vicryl in deep dermal layer and running subcuticular 3-0 Vicryl for the skin. Steri-Strips were applied as was an Acticoat dressing. The drains were additionally secured with OpSite and attached to bulb suction. The patient was ultimately extubated and transferred to the recovery room in good condition having suffered no complications. Sponge, needle, and instrument counts reported as correct x3. MD ABNER Walls/MODL /[id number] cc: MD Sabiha Patrick MD Copies: CARMENCITA ALLEN MD, RUSSELL BARR MD ~ Electronically Signed By: RAJESH THACKER MD 10/20/202014 PATIENT NAME: JT LERMA OPERATIVE REPORT DATE OF : 44 REPORT #: [id number] PHYSICIAN: RAJESH THACKER MD PCP: SABIHA TOM MD REPORT IS CONFIDENTIAL AND NOT TO BE RELEASED WITHOUT AUTHORIZATION
--- NOTE | 2020-10-27 12:56 | PATH ---
[facility] [address] [place] [address] Signed THIS IS AN ADDENDUM REPORT SPECIMEN(S): A LYMPH NODE OF RIGHT AXILLA SPECIMEN(S): B RIGHT BREAST WITH AXILLARY CONTENTS SPECIMEN SOURCE: A. LYMPH NODE OF RIGHT AXILLA B. RIGHT BREAST WITH AXILLARY CONTENTS CLINICAL HISTORY: Right breast cancer. FROZEN SECTION DIAGNOSIS: A. Lymph node right axilla: - Positive for metastatic carcinoma. Melonie Serna M.D. 10/17/2020 11:29 a.m. Location of frozen procedure: [facility] Frozen section diagnoses called to Dr. Clark at 11:29 AM. AC (under the direct supervision of a pathologist) The Gross Description was prepared using a voice recognition system. The report was reviewed for accuracy; however, sound-alike word errors, addition and/or deletions may occur. If there is any question about this report, please contact Client Services. FINAL PATHOLOGIC DIAGNOSIS: A. Lymph node, right axilla, excisional biopsy: - Metastatic ductal carcinoma present in one lymph node (02/17). - Size of metastatic deposit: 21 mm. - Extranodal extension: Present, at least 1 mm. B. Breast and axillary contents, right, modified radical mastectomy: - Invasive ductal carcinoma, see Comment and Synoptic Report below for complete details. - One residual focus of invasive carcinoma. - Size: 18 x 14 x 13 mm. - Histologic grade ([place] histologic score): - Glandular (acinar)/tubular differentiation: Score 3. - Nuclear pleomorphism: Score 3. - Mitotic rate: Score 3. - Overall grade: Grade 3 (total score 9 of 9). - Ductal carcinoma in situ (DCIS): Present, Grade 3 (high) with comedonecrosis. PATIENT NAME: JT LERMA PATHOLOGY DATE OF : 44 REPORT #: [id number] PHYSICIAN: GIGI PATHOLOGY PCP: SABIHA CALDERON MD REPORT IS CONFIDENTIAL AND NOT TO BE RELEASED WITHOUT AUTHORIZATION [facility] [address] [place], [place] [address] Signed - Lymphovascular invasion: Not identified. - Surgical margins negative invasive and in situ carcinoma. - Metastatic ductal carcinoma present in 16 of 23 lymph nodes (16/23). - Size of metastatic deposit: 45 mm. - Extranodal extension: Present, 3 mm. - Intradermal nevus with congenital features. - Post-surgical site changes. COMMENT: Only one residual focus of invasive ductal carcinoma is present in the modified radical mastectomy, designated focus #1. Invasive carcinoma focus #2 was previously excised 10/05/20, prior to the modified radical mastectomy (case [id number]) as an excisional biopsy. The details from the previous excisional biopsy of focus #2, including histologic scoring, size, and biomarker status, were included in the final synoptic report of the modified radical mastectomy; see synoptic report below. Regarding specimen A:. Focal extranodal extension is seen, approximately 1 mm. The lymph node demonstrates fatty replacement in areas without a well-defined capsule. In one such area, metastatic carcinoma extends into fat over a span of 8 mm, but this focus is interpreted as indefinite for extranodal extension. SYNOPTIC REPORT FOR INVASIVE DUCTAL CARCINOMA OF THE RIGHT BREAST: - Invasive ductal carcinoma with the following features: - Procedure: Modified radical mastectomy. - Laterality: Right breast. - Tumor focality: Two foci of invasive carcinoma (see Comment). - Tumor site: - Focus #1: 8 o'clock (lateral). - Focus #2: Lower outer quadrant (inferior to focus #1, [id number]). - Histologic type: Invasive ductal carcinoma with micropapillary and mucinous features. - Histologic grade ([place] histologic score): - Glandular (acinar)/tubular differentiation: Score 3. - Nuclear pleomorphism: Score 3. - Mitotic rate: Score 3. - Overall grade: Grade 3 (total score 9 of 9). - Tumor size: - Focus #1: 18 x 14 x 13 mm. PATIENT NAME: JT LERMA PATHOLOGY DATE OF : 44 REPORT #: [id number] PHYSICIAN: GIGI MONTILLA PCP: SABIHA CALDERON MD REPORT IS CONFIDENTIAL AND NOT TO BE RELEASED WITHOUT AUTHORIZATION [facility] [address] [place], [place] [address] Signed - Focus #2: 15 x 14 x 8 mm. - Ductal carcinoma in situ (DCIS): Present, negative for extensive intraductal component (EIC). - Architectural patterns: Solid, papillary, and micropapillary types with comedo necrosis. - Nuclear grade: Grade 3 (high). - Lymphovascular invasion: Not identified. - Dermal lymphovascular invasion: Not identified. - Microcalcifications: Present in invasive carcinoma and non-neoplastic tissue. - Treatment effect in the breast: No known pre-surgical therapy. - Margins: - Margin status for invasive carcinoma: All margins negative for invasive carcinoma. - Invasive carcinoma greater than 10 mm from all margins (superior, inferior, posterior). - Margin status for DCIS: All margins negative for DCIS. - DCIS greater than 10 mm from all margins (superior inferior, posterior). - Regional lymph nodes: Tumor present in regional lymph nodes. - Number of lymph nodes with macrometastasis: 16 (including 1 from specimen A) - Number of lymph nodes with micrometastasis: 0 - Number of lymph nodes wit isolated tumor cells: 1 - Size of largest xochitl metastatic deposit: 45 mm. - Extranodal extension: Present, 3 mm. - Total number of lymph nodes examined: 24 - Number of [place] Nodes Examined: 0 - Breast biomarker studies: Refer to previously performed testing, reported as ER positive, ID positive, HER2 equivocal (2+) by IHC, and HER2 negative by FISH for both foci #1 and #2 ([id number], [id number]). Focus #2 Ki-67 proliferation index was 30%; Ki-67 proliferation index of focus #1 is pending and will be reported in an addendum. - Additional findings: Intradermal nevus with congenital features, post-surgical site changes. - Pathologic stage classification (pTNM, AJCC 8th ed): mpT1c pN3a As part of [employer] Quality Improvement Program, this case was reviewed by another member of our pathology staff. NAL:cml:C1NR PATIENT NAME: JT LERMA PATHOLOGY DATE OF : 44 REPORT #: [id number] PHYSICIAN: GIGI PATHOLOGY PCP: SABIHA CALDERON MD REPORT IS CONFIDENTIAL AND NOT TO BE RELEASED WITHOUT AUTHORIZATION [facility] [address] [place], [place] [address] Signed MICROSCOPIC EXAMINATION: Histologic sections of all submitted blocks are examined by light microscopy. These findings, together with the gross examination, support the pathologic diagnosis. An e-cadherin immunohistochemical stain (with appropriately staining controls) demonstrates membranous staining of the invasive carcinoma cells in a distribution sales representative section, supporting ductal origin. GROSS DESCRIPTION: Two specimens are received in two containers, labeled "KT." A. The specimen, labeled "KT, A," and designated on the requisition "lymph node of right axilla," is received fresh and consists of "a 2.1 x 1.8 x 1.0 cm lymph node. Lymph node is sectioned to firm chan tissue concerning for grossly positive disease and a 4 mm areas suspicious for extranodal extension. One touch prep slide was made. A distribution sales representative section was frozen and rest for permanents". The specimen is submitted entirely as follows: (A1) frozen section remnant (A2-A3) free-floating tissue B. The specimen, labeled "KT, B," and designated on the requisition "right breast with axillary contents," is received fresh (placed in formalin at 3:11 PM on 10/17/20) and consists of modified radical mastectomy (fixed weight: 1117 g, 36.0 cm medial to lateral, 18 cm superior to inferior, 4 cm anterior to posterior), attached pink-chan to blue tinted skin (22.0 x 14.5 cm) with everted nipple (1.5 x 1.3 x 0.5 cm) with a 4.0 cm linear scar on the medial aspect and a 5.0 cm scar in the inferior aspect. The axillary tail measures (12.0 x 8.3 x 3.0 cm). The specimen is inked as follows: *Green = superior *Blue = inferior Black = posterior The specimen is serially sectioned from lateral to medial into 21 slices to reveal A firm white-chan ill-defined stellate mass (1.8 cm medial to lateral, 1.4 cm superior to inferior, and 1.3 cm anterior to posterior) in slices 6-8 that is located around 8 o'clock, 2.5 cm from the posterior margin, 1.4 centimeters from the skin, 3.3 cm from the inferior margin, and 9.0 cm from the superior margin. Located 1.5 cm inferior and medial from the mass is a biopsy cavity (4.0 cm PATIENT NAME: JT LERMA PATHOLOGY DATE OF : 44 REPORT #: [id number] PHYSICIAN: GIGI MONTILLA PCP: SABIHA CALDERON MD REPORT IS CONFIDENTIAL AND NOT TO BE RELEASED WITHOUT AUTHORIZATION [address] [address] Signed medial to lateral, 3.7 cm anterior to posterior, and 1.3 cm superior to inferior) in slices 9-12 in the lower outer quadrant at approximately 7 o'clock. The biopsy cavity has firm white to brown-chan fibrous mora, involves the skin (corresponding to the previously mentioned 5 cm scar), and is located 2.2 cm from the posterior margin, 2.1 cm from the inferior margin, and 11.0 cm from the superior margin. At approximately 3 o'clock, in slices 13-18 is a second biopsy cavity (4.3 cm medial to lateral, 3.8 cm anterior-posterior, 2.5 cm superior to inferior) that abuts the posterior margin and skin (corresponding to the previously mentioned 4 cm scar) and is located 1.5 cm from the inferior margin, 1.7 cm from the superior margin, 5.0 cm from the mass, and 5.5 cm from the first cavity. The remaining cut surface shows yellow-chan fatty tissue. A specimen map is prepared and uploaded into [employer]. The axillary tail is palpated and 20 pink-chan to white-chan and firm possible lymph nodes (ranging in size from 0.2-4.5 cm in greatest dimension) are identified. The largest lymph node (4.5 cm) is sectioned to show with fibrous firm tissue. Concierge sections are submitted as follows: (B1) mass, slice six, distribution sales representative (B2) mass, slice seven, distribution sales representative (B3) mass, slice eight, distribution sales representative (B4) posterior margin (slice eight) and skin (slice seven) closest to mass (B5) inferior margin (slice seven) closest to mass and superior margin (slice eight) closest to mass and cavity #1 (B6) tissue between mass and cavity #1 (slice eight) (B7) tissue between mass and cavity #1 (slice nine) (B8) slice nine, lateral aspect of cavity #1, distribution sales representative perpendicular sections (B9) slice 10, cavity #1 to skin (B10) slice 11 posterior aspect of cavity #1 (B11) slice 11, superior wall of cavity #1 (B12) slice 10 and 11, inferior wall of cavity #1 (B13) slice 12, medial aspect of cavity #1, distribution sales representative perpendicular sections (B14) posterior (slice 11) and inferior margin (slice 12) closest to cavity #1 (B15) tissue between cavity #1 and cavity #2 (slice 12, slice 13) PATIENT NAME: JT LERMA PATHOLOGY DATE OF : 44 REPORT #: [id number] PHYSICIAN: GIGI PATHOLOGY PCP: SABIHA CALDERON MD REPORT IS CONFIDENTIAL AND NOT TO BE RELEASED WITHOUT AUTHORIZATION [facility] [address] [place], [place] [address] Signed (B16) tissue between first mass and cavity #2 (slice 11, slice nine) (B17) slice 13, lateral aspect of cavity #2, distribution sales representative perpendicular sections (B18) distribution sales representative inferior aspect of cavity #2 (slice 14, slice 16) (B19) cavity #2 to posterior margin (slice 16, slice 17) (B20) cavity #2 to skin (slice 17) (B21) slice 18, cavity #2 medial aspect, distribution sales representative perpendicular sections (B22) slice 17, superior and inferior margins closest to cavity #2 (B23) nipple, serially sectioned (B24) upper outer quadrant (slice five, slice seven) (B25) lower outer quadrant (slice four, slice eight) (B26) upper inner quadrant (slice 12, slice 17) (B27) lower inner quadrant (slice 13, slice 15) (B28) five possible lymph nodes, intact (B29) four possible lymph nodes, intact (B30) three possible lymph nodes, intact (B31) two possible lymph nodes, one inked blue, both bisected (B32) two possible lymph nodes, one inked blue, both bisected (B33) one possible 2.7 cm lymph node, distribution sales representative section (B34) one possible 2.2 cm lymph node, distribution sales representative sections (B35) one possible 4.5 cm lymph node, distribution sales representative sections Cold ischemic time: Cannot be calculated due to insufficient information The specimen was fixed in formalin for 34 hours and 19 minutes There is a pink-chan blue tinted to blue tinted lesion around 10 o'clock on the skin surface (0.8 x 0.7 cm) located 8 cm from the nipple. Additional sections are submitted as follows at the request of Dr. Serna: (B 36) entire skin lesion, serially sectioned (B 37) posterior, inferior and superior margins closest to B7 AC (under the direct supervision of a pathologist) PERFORMING LABORATORY: [facility], [address] [place] [address] (CLIA# [id number]). The technical component was performed by [facility] [place] [address] (Painter Supervisor: Josefina Santiago MD; CLIA# [id number]). Professional interpretation was performed by [facility], [address] [place] [address] (CLIA# [id number]). PATIENT NAME: JT LERMA PATHOLOGY DATE OF : 44 REPORT #: [id number] PHYSICIAN: GIGI PATHOLOGY PCP: SABIHA CALDERON MD REPORT IS CONFIDENTIAL AND NOT TO BE RELEASED WITHOUT AUTHORIZATION [facility] [address] [place] [address] Signed ADDITIONAL NOTES: Immunohistochemical and/or in situ hybridization studies were performed on this case with the appropriate positive controls that react as expected. This test was developed and its performance characteristics determined by [facility] [facility]. It has not been cleared or approved by the U.S. Food and Drug Administration. The FDA has determined that such clearance or approval is not necessary. This test is used for clinical purposes. It should not be regarded as investigational or for research. [facility] [facility] [facility] is certified under the Clinical Laboratory Improvement Amendments of 1988 (CLIA) as qualified to perform high complexity clinical laboratory testing. This assay has not been validated for specimens that have been decalcified. The technical component was performed by [facility] [facility] [employer] [facility], [address] [place] [id number] (Painter Supervisor: Josefina Santiago MD; CLIA# [id number]). Professional interpretation was performed by [facility], [address] [place] [address] (CLIA# [id number]). REASON FOR ADDENDUM: To add results of additional testing. ADDENDUM PATHOLOGIC DIAGNOSIS: A Ki-67 immunohistochemical stain (with appropriately staining controls) was performed on invasive ductal carcinoma focus #1 and 500 cells are counted. The Ki-67 proliferation index is approximately 21%. NAL:cml Diagnostician: Melonie Serna MD Pathologist Electronically Signed 10/27/2020 Copies: ~ PATIENT NAME: JT LERMA PATHOLOGY DATE OF : 44 REPORT #: [id number] PHYSICIAN: GIGI PATHOLOGY PCP: SABIHA CALDERON MD REPORT IS CONFIDENTIAL AND NOT TO BE RELEASED WITHOUT AUTHORIZATION
== END 2020-10-18 14:20 | disposition home or self-care (01) ==
LOC: MS 07:29 → DS 07:29 → MS 13:20 → DS 13:21 → MS 10-18 14:20
PROVIDERS: ADMIT Surgery; ATTEND Surgery
PROC: 0HTT0ZZ Resection of Right Breast, Open Approach (ICD-10-PCS; principal; 2020-10-17 08:30)
PROC: 07T50ZZ Resection of Right Axillary Lymphatic, Open Approach (ICD-10-PCS; 2020-10-17 08:30)
PROC: 07T80ZZ Resection of Right Internal Mammary Lymphatic, Open Approach (ICD-10-PCS; 2020-10-17 08:30)
DX: C50.811 Malignant neoplasm of overlapping sites of right female breast (principal); C77.3 Secondary and unspecified malignant neoplasm of axilla and upper limb lymph nodes; Z17.0 Estrogen receptor positive status [ER+]; I12.9 Hypertensive chronic kidney disease with stage 1 through stage 4 chronic kidney disease, or unspecified chronic kidney disease; N18.9 Chronic kidney disease, unspecified; I48.91 Unspecified atrial fibrillation; M19.90 Unspecified osteoarthritis, unspecified site; Z85.828 Personal history of other malignant neoplasm of skin; Z88.6 Allergy status to analgesic agent; Z88.2 Allergy status to sulfonamides; Z85.72 Personal history of non-Hodgkin lymphomas; Z79.01 Long term (current) use of anticoagulants
CPT/HCPCS: 00404; 80053; 80500; 85025; 85610; 85730; 88305; 88307; 88309; 88342; 88360; 96372; 96376; G0378; J0690; J1100; J1644; J1885; J2001; J2405; J2704; J3010; J7121; Q9968

== ENCOUNTER 2020-10-20 09:36 | Emergency (ER) | payer MEDICARE, OTHER ==
[~2020-10-20] VITALS: Ht 167.6 cm; Wt 89.8 kg
[~2020-10-20 09:36] MED LIST changes: +BRIMONIDINE TART5 ML OU; +CYANOCOBAL1000 MCG/M IM; +METOPROLOL TART25 MG PO; +SF 5000 PLUS51 GM DT; +TIMOLOL MALEATE5 M2 OU
[2020-10-20] MEDS ORDERED: OXYCODON-ACETA1 EAC2 PO (10:00)
== END 2020-10-20 10:32 | disposition home or self-care (01) ==
LOC: ED 09:36
DX: T85.638A Leakage of other specified internal prosthetic devices, implants and grafts, initial encounter (principal); I48.91 Unspecified atrial fibrillation; I10 Essential (primary) hypertension; Z85.3 Personal history of malignant neoplasm of breast; D64.9 Anemia, unspecified; Z88.2 Allergy status to sulfonamides; Z88.8 Allergy status to other drugs, medicaments and biological substances; Z79.899 Other long term (current) drug therapy; Z79.01 Long term (current) use of anticoagulants
CPT/HCPCS: 99283

== ENCOUNTER 2025-01-07 09:52 | Emergency (ER) | payer MEDICARE, OTHER ==
[~2025-01-07] VITALS: Ht 167.6 cm; Wt 95.0 kg
[~2025-01-07 09:52] MED LIST changes: +NIFEDIPINE ER30 M1 PO
[2025-01-07] MEDS ORDERED: IBLOOD GLUCOSE TEST STRIP 1 EA TEST XX ONE (10:30)
[2025-01-07 10:37] LABS: BASOPHILS 0.3 % (0.1-1.2); EOSINOPHILS 1.3 % (0.7-5.8); LYMPHOCYTES 8.4 % (19.3-51.7); MCH 33.4 PG (25.6-32.2); MCHC 33.6 g/dL (32.2-35.5); MCV 99.7 fL (79.4-94.8); MONOCYTES 9.1 % (4.7-12.5); NEUTROPHILS 79.9 % (34.0-71.1); RBC 3.05 M/uL (3.93-5.22)
[2025-01-07 10:49] LABS: PROTIME 51.8 Sec (11.2-14.2)
[2025-01-07 10:53] LABS: INR 6.16 (0.80-1.30)
[2025-01-07 10:56] LABS: ALT (SGPT) 8.0 U/L (14-59); AST (SGOT) 13.0 U/L (15-37); GLOMERULAR FILTRATION RATE,EST 16.0 mL/min (>60); PROTEIN, TOTAL 6.5 g/dL (6.4-8.2); UREA NITROGEN 59.0 mg/dL (7-18)
[2025-01-07] MEDS ORDERED: PHYTONADIONE 2.5 MG/2.5 ML SYR PO ONE (11:00)
[2025-01-07] MEDS ORDERED: AMOX-CLAV 250-1 EACH PO (11:09)
[2025-01-07] MEDS ORDERED: ZITHROMAX250 MG PO (11:09)
[2025-01-07] MEDS ORDERED: AMOXICILLIN/CLAVULANATE K 500 MG TAB PO ONE (11:15)
[2025-01-07] MEDS ORDERED: AZITHROMYCIN 250 MG TAB PO ONE (11:15)
[2025-01-07 12:30] VITALS: BP 133/65
--- NOTE | 2025-01-08 21:17 | EKG ---
[facility] [address] [place] [address] Signed Sinus rhythm with premature supraventricular complexes Septal infarct (cited on or before 02-OCT-2020) Abnormal ECG When compared with ECG of 02-OCT-2020 09:44, premature supraventricular complexes are now present Vent. rate has increased BY 25 BPM Nonspecific T wave abnormality now evident in Lateral leads Confirmed by Riley Conrad MD () on 01/08/2025 9:17:20 PM Electronically Signed By: RILEY CONRAD MD 01/08/257 PATIENT NAME: JT LERMA Electrocardiogram DATE OF : 44 PHYSICIAN: RILEY CONRAD MD REPORT #: [id number] REPORT IS CONFIDENTIAL AND NOT TO BE RELEASED WITHOUT AUTHORIZATION
== END 2025-01-07 12:30 | disposition home or self-care (01) ==
LOC: ED 09:52
PROVIDERS: Emergency Medicine
DX: J18.9 Pneumonia, unspecified organism (principal); Z79.01 Long term (current) use of anticoagulants; I48.91 Unspecified atrial fibrillation; I10 Essential (primary) hypertension; Z88.2 Allergy status to sulfonamides; Z79.899 Other long term (current) drug therapy
CPT/HCPCS: 36415; 71045; 80053; 83735; 84484; 85025; 85610; 93005; 93010; 99284